=== PATIENT | male | born 1950 | race Caucasian/White ===

== ENCOUNTER → 2017-11-17 | Outpatient (CLI) | payer MEDICARE ==
[~2017-11-17] MED LIST: OMNIPAQUE 350 MG/ML, 100ML BOTTLE ONE
== END | disposition home or self-care (01) ==
LOC: CFH 11:17
PROVIDERS: ATTEND Internal Medicine
DX: N28.89 Other specified disorders of kidney and ureter (principal); D69.6 Thrombocytopenia, unspecified; R63.4 Abnormal weight loss
CPT/HCPCS: 71260; 74177; Q9967

== ENCOUNTER → 2017-12-13 | Outpatient (CLI) | payer MEDICARE ==
[~2017-12-13] MED LIST changes: -OMNIPAQUE 350 MG/ML, 100ML BOTTLE ONE; +OMNIPAQUE 350 MG/ML, 75ML BOTTLE ONE
== END ==
LOC: CFH 09:08
PROVIDERS: ATTEND Specialist
DX: J84.10 Pulmonary fibrosis, unspecified (principal); R91.8 Other nonspecific abnormal finding of lung field; D18.09 Hemangioma of other sites; M25.78 Osteophyte, vertebrae; N28.89 Other specified disorders of kidney and ureter
CPT/HCPCS: 71260; Q9967

== ENCOUNTER → 2018-05-15 | Outpatient (CLI) | payer MEDICARE | END | disposition home or self-care (01) | LOC: RAD 13:43 | PROVIDERS: ATTEND Internal Medicine | DX: C64.2 Malignant neoplasm of left kidney, except renal pelvis (principal); I89.8 Other specified noninfective disorders of lymphatic vessels and lymph nodes; K80.20 Calculus of gallbladder without cholecystitis without obstruction | CPT/HCPCS: 74181 ==

== ENCOUNTER → 2018-06-29 | Outpatient (CLI) | payer MEDICARE | END | disposition home or self-care (01) | LOC: CFH 08:48 | PROVIDERS: ATTEND Internal Medicine | DX: M43.16 Spondylolisthesis, lumbar region (principal); M48.061 Spinal stenosis, lumbar region without neurogenic claudication; M25.78 Osteophyte, vertebrae | CPT/HCPCS: 72148 ==

== ENCOUNTER → 2020-04-02 | Outpatient (CLI) | payer MEDICARE | END | disposition home or self-care (01) | LOC: CVU 08:28 | PROVIDERS: ATTEND Internal Medicine Clinical Cardiac Electrophysiology | DX: I35.1 Nonrheumatic aortic (valve) insufficiency (principal); I25.84 Coronary atherosclerosis due to calcified coronary lesion; Z87.891 Personal history of nicotine dependence | CPT/HCPCS: 93306 ==

== ENCOUNTER 2020-04-10 12:10 | Emergency (ER) | payer MEDICARE ==
[~2020-04-10] VITALS: Ht 175.3 cm; Wt 80.0 kg
--- NOTE | 2020-04-10 12:52 | NUR ---
BROUGHT IN BY SHARDA FROM HOME WITH CHIEF COMPLAINT OF BLOODY BM LAST NIGHT, NON CURRENTLY, DENIES ANY CURRENT DISCOMFORT. PT RESTING IN BED, CALL LIGHT IN REACH.
--- NOTE | 2020-04-10 13:22 | NUR ---
ER LEONIDES PIMENTEL AT BEDSIDE FOR EVALUATION
[2020-04-10 14:35] LABS: BASOPHILS # (AUTO) 0.03 x10^3/uL (0-0.1); BASOPHILS % (AUTO) 0 % (0-1); EOSINOPHILS # (AUTO) 0.04 x10^3/uL (0-0.4); EOSINOPHILS % (AUTO) 0 % (1-7); LYMPHOCYTES # (AUTO) 1.19 x10^3/uL (1-3.4); LYMPHOCYTES % (AUTO) 8 % (22-44); MD NO; MEAN CORPUSCULAR HEMOGLOBIN 34.1 pg (27.5-34.5); MEAN CORPUSCULAR HGB CONC 31.8 g/dL (33.2-36.2); MEAN CORPUSCULAR VOLUME 107.3 fL (81-97); MEAN PLATELET VOLUME 9.6 fL (7.4-10.4); MONOCYTES # (AUTO) 1.14 x10^3/uL (0.2-0.8); MONOCYTES % (AUTO) 8 % (2-9); NEUTROPHILS # (AUTO) 11.75 x10^3/uL (1.8-6.8); NEUTROPHILS % (AUTO) 83 % (42-75); PLATELET COUNT 203 x10^3/uL (130-400); RED BLOOD COUNT 3.46 x10^6/uL (4.38-5.82); RED CELL DISTRIBUTION WIDTH 16.5 % (9.4-14.8)
[2020-04-10 14:41] LABS: ALBUMIN 3.2 g/dL (3.4-5.0); ANION GAP 9 mmol/L (5-15); CALCIUM 8.4 mg/dL (8.5-10.1); CHLORIDE 102 mmol/L (98-107); INTERNATIONAL NORMALIZED RATIO 0.97 (0.93-1.1)
[2020-04-10 14:45] LABS: ALANINE AMINOTRANSFERASE 35 U/L (12-78); ALKALINE PHOSPHATASE 101 U/L (45-117); BILIRUBIN,TOTAL 0.7 mg/dL (0.2-1.0); CREATININE 0.87 mg/dL (0.7-1.3)
--- NOTE | 2020-04-10 15:06 | NUR ---
to imaging. aware of need for stool sample. as
[2020-04-10] MEDS ORDERED: OMNIPAQUE 350 MG/ML, 100ML BOTTLE ONE (15:21)
--- NOTE | 2020-04-10 15:37 | NUR ---
oob to bathroom for stool. as
--- NOTE | 2020-04-10 15:45 | NUR ---
pt unsuccessful w/ bm attempt, bright red blood noted on TP and in toilet. PA in room to do rectal exam. as
[2020-04-10 16:45] VITALS: BP 145/79
== END 2020-04-10 16:48 | disposition home or self-care (01) ==
LOC: ED 14:25
DX: D75.89 Other specified diseases of blood and blood-forming organs (principal); D72.829 Elevated white blood cell count, unspecified; D64.9 Anemia, unspecified; K92.1 Melena; R19.05 Periumbilic swelling, mass or lump; I10 Essential (primary) hypertension; Z90.5 Acquired absence of kidney; Z90.81 Acquired absence of spleen; Z85.53 Personal history of malignant neoplasm of renal pelvis
CPT/HCPCS: 36415; 71046; 74177; 80053; 83690; 85025; 85610; 85730; 99285; Q9967